=== PATIENT | male | born 1945 | race Caucasian/White ===

== ENCOUNTER 2021-06-14 12:58 | Emergency (ER) | payer OTHER, SELFPAY ==
--- NOTE | ~2021-06-14 | CT_ITS ---
EXAMINATION: CT brain wo con DATE: 06/14/2021 14:52 INDICATION: Transient disorientation. Vomiting. Patient fell 2 weeks ago and struck head. TECHNIQUE: Computed tomography (CT) of the head was performed without intravenous contrast. The mA wa s adjusted according to patient size. Iterative reconstruction technique was employed. Exam dose: 68 1.00 mGy-cm total exam DLP. COMPARISON: 10/19/2019 CT brain FINDINGS: Again noted is a posterior right parietal ventriculostomy catheter terminating in the left lateral ventricle. There is cerebellar and central and cortical cerebral atrophy. No intracranial mass lesion or hemorrhage, midline shift or mass effect effect or recent cerebrovascu lar accident is detected. No subdural or epidural hematoma. No skull fracture or bone destruction is detected. The mastoid air cells and paranasal sinuses are normally developed and aerated. IMPRESSION: Right posterior parietal ventriculostomy catheter in left lateral ventricle, not changed significantly since 10/19/2019 Central and cortical cerebral and cerebellar atrophy; no acute intracranial finding Reviewed, dictated and finalized at [facility]. Reviewed, dictated and finalized at [facility]. IMPRESSION: Right posterior parietal ventriculostomy catheter in left lateral ventricle, not changed significantly since 10/19/2019 Central and cortical cerebral and cerebellar atrophy; no acute intracranial fin ding
--- NOTE | ~2021-06-14 | XR_ITS ---
EXAMINATION: XR shoulder RT min 2V INDICATION: Right shoulder pain, fall two weeks ago TECHNIQUE: Four views of the right shoulder are submitted. COMPARISON: None FINDINGS: Normal alignment. No fracture. 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 Amorphous calcification projecting lateral to the humeral head is likely tendinous in natu re. Shunt catheter tubing projects over the right neck and right hemithorax. IMPRESSION: 1. No acute osseous abnormality. Reviewed, dictated and finalized at [facility].
[2021-06-14 12:58] VITALS: BP 87/45; PULSE 74; RESP 14; TEMP 36.3; O2SAT 97
[2021-06-14] MEDS: SODIUM CHLORIDE 0.9% IV 1,000 ML 999 ML (13:27)
[2021-06-14 13:43] LABS: Basophils Absolute Auto 0.07 K/mm3 (0.00-0.10); Basophils Percent Auto 0.8 % (0.0-1.0); Eosinophils Absolute Auto 0.23 K/mm3 (0.02-0.50); Eosinophils Percent Auto 2.5 % (1.0-6.0); Hematocrit 35.5 % (37.0-46.0); Hemoglobin 10.9 g/dL (12.4-15.3); Immature Granulocyte Absolute 0.03 K/mm3 (0.00-0.00); Immature Granulocyte Percent A 0.3 % (0.0-0.0); Lymphocytes Absolute Auto 1.56 K/mm3 (1.10-4.50); Lymphocytes Percent Auto 17.2 % (18.0-42.0); Mean Corpuscular HGB Conc 30.7 g/dL (32.0-36.0); Mean Corpuscular Hemoglobin 22.8 pg (27.0-31.0); Mean Corpuscular Volume 74.1 fL (78.0-102.0); Mean Platelet Volume 10.8 fl (8.7-11.0); Monocytes Absolute Auto 1.01 K/mm3 (0.10-0.90); Monocytes Percent Auto 11.1 % (2.0-11.0); Neutrophils Absolute Auto 6.2 K/mm3 (1.7-7.2); Neutrophils Percent Auto 68.1 % (50.0-70.0); Platelet Count Result 270 K/mm3 (150-420); Red Blood Count 4.79 M/mm3 (4.70-6.10); White Blood Count 9.1 K/mm3 (4.8-10.8)
--- NOTE | 2021-06-14 13:48 | ECG_ITS ---
Measurements Intervals [place] Rate: 78 P: 65 HI: 255 QRS: -55 QRSD: 167 T: 58 QT: 410 QTc: 468 Interpretive Statements SINUS RHYTHM WITH FIRST DEGREE AV BLOCK RIGHT BUNDLE BRANCH BLOCK LEFT ANTERIOR FASCICULAR BLOCK VOLTAGE CRITERIA FOR LVH BASELINE WANDER- II, III ABNORMAL ECG Electronically Signed On 06-14-2021 14:04:54 CDT by Greg Cheung D.O.
[2021-06-14 13:51] LABS: Alanine Aminotransferase 44 U/L (16-63); Albumin Level 3.6 g/dL (3.4-5.0); Alkaline Phosphatase 119 U/L (46-116); Anion Gap 14 mmol/L (8-16); Aspartate Amino Transferase 18 U/L (15-37); Bilirubin,Total 0.3 mg/dL (0.00-1.00); Blood Urea Nitrogen 23 mg/dL (7-18); Calcium 8.8 mg/dL (8.5-10.1); Carbon Dioxide 22 mmol/L (21-32); Chloride 100 mmol/L (98-108); Estimated Glomerular Filt Rate 42; Glucose 233 mg/dL (70-99); Osmolality Calculated 292 mOsm/kg (285-295); Potassium 4.2 mmol/L (3.5-5.1); Sodium 136 mmol/L (136-145); Total Protein 7.2 g/dL (6.4-8.2)
--- NOTE | 2021-06-14 13:55 | ED.GENADULT ---
HPI - General Adult General Chief complaint: Nausea/Vomiting/Diarrhea Stated complaint: Ambulance Time Seen by Provider: 06/14/21 13:55 History of Present Illness HPI narrative: 76-year-old male patient was brought to the ER by EMS after he had 1 episode of emesis this morning. Patient states that he was getting ready to have his breakfast when he suddenly felt nauseated and vomited. He states that he got a little foggy in his head but did not experience any headache, dizziness or passing out spell. He denies having experienced any pain in his neck jaw or chest. He denies having had any pain in his abdomen. No diarrhea is reported. The patient since then has felt better. He did not eat his breakfast the eventually. He does admit to being a diabetic but states that had not taken his insulin at that time. Patient states that he is feeling fine right now. He denies any COVID exposure. He is partially vaccinated and the 2nd dose is due coming Monday. Related Data Home Medications Medication Instructions Recorded Confirmed amlodipine [Norvasc] 5 mg PO DAILY 09/23/19 06/14/21 bupropion HCl 75 mg PO DAILY 09/23/19 06/14/21 cetirizine [Zyrtec] 10 mg PO DAILY 09/23/19 06/14/21 cyclobenzaprine 10 mg PO TID 09/23/19 06/14/21 fluticasone propionate 2 spray INTRANASAL BID 09/23/19 06/14/21 gabapentin 600 mg PO TID 09/23/19 06/14/21 hydrocodone-acetaminophen [Vicodin 1 tablet PO TID PRN 09/23/19 06/14/21 ES] insulin aspart U-100 [Novolog 17 unit SUBCUT DAILY 09/23/19 06/14/21 Flexpen U-100 Insulin] insulin glargine [Lantus Solostar 70 unit SUBCUT DAILY 09/23/19 06/14/21 U-100 Insulin] levothyroxine [Synthroid] 25 mcg PO DAILY 09/23/19 06/14/21 losartan 10 mg PO DAILY 09/23/19 06/14/21 metformin 1,000 mg PO DAILY 09/23/19 06/14/21 omeprazole 20 mg PO BID 09/23/19 06/14/21 tamsulosin 0.4 mg PO DAILY 09/23/19 06/14/21 venlafaxine 75 mg PO DAILY 09/23/19 06/14/21 Allergies Allergy/AdvReac Type Severity Reaction Status Date / Time oxycodone Allergy Intermediate heart Verified 10/04/17 16:25 racing Review of Systems Review of Systems: All systems reviewed & are unremarkable except as noted in HPI and below Constitutional: Constitutional: Reports no additional constitutional complaints Eyes: Eyes: Reports no additional eye complaints ENT: Reports system reviewed and no additional complaints, except as documented Cardiovascular: Cardiovascular: Reports no additional cardiovascular complaints Respiratory: Respiratory: Reports no additional respiratory complaints Gastrointestinal: Gastrointestinal: Reports no additional gastrointestinal complaints Genitourinary: Genitourinary: Reports no additional male genitourinary complaints Musculoskeletal: Musculoskeletal: Reports no additional musculoskeletal complaints Integumentary/Breasts: Skin/Breast: Reports system reviewed and no additional complaints, except as docu Neurologic: Reports system reviewed and no additional complaints, except as documented Psychiatric: Psychiatric: Reports no additional psychiatric complaints Endocrine: Endocrine: Reports no additional endocrine complaints Hematologic/Lymphatic: Hematologic/Lymphatic: Reports no additional hematologic/lymphatic complaints Allergic/Immunologic: Allergic/Immunologic: Reports no additional allergic/immunologic complaints PMFSH Past Medical History Medical History CVA (cerebrovascular accident) Depression Diabetes mellitus Hypertension Hypothyroidism Ventricular shunt in place Surgical History Surgical History H/O shoulder surgery History of appendectomy Hx of cholecystectomy Family History Family History Father Malignant neoplasm of prostate father in a railway crossing accident in his early 40s Mother No problems noted.
[2021-06-14 14:07] LABS: Magnesium 1.8 mg/dL (1.8-2.4); Troponin I 5.8 ng/L (0.00-60.4)
[2021-06-14 15:00] VITALS: BP 145/71; PULSE 83
[2021-06-14 15:02] VITALS: BP 113/99; PULSE 76
[2021-06-14 15:04] VITALS: BP 132/64; PULSE 85
[2021-06-14 15:45] VITALS: BP 103/75; PULSE 77; RESP 16; O2SAT 99
[2021-06-14 16:06] LABS: Add Urine Microscopic? YES; Appearance Urine Cloudy (Clear); Bilirubin Urine Negative (Negative); Blood Urine 1+ (Negative); Color Urine Light Yellow (Yellow); Glucose Urine UA 2+ (Negative); Ketones Urine Negative (Negative); Leukocyte Esterase Ur 3+ LEU/UL (Negative); Nitrate Urine Negative (Negative); Protein Urine Negative (Negative); Specific Grav Ur <= 1.005 (1.010-1.020); Urobilinogen Urine 0.2 mg/dL (0.2-1.0)
[2021-06-14 16:11] LABS: Bacteria Urine 3+ /hpf; Squamous Epithelial Cell Urine Few /hpf (Few); WBC Urine >75 /hpf (0-3)
--- NOTE | 2021-06-14 16:16 | PC.NURSE ---
PATIENTS SPOUSE, JOSE, CONTACTED AFTER PATIENTS DISCHARGE TO INFORM HER OF PATIENTS URINALYSIS RESULTS. SPOUSE INFORMED THAT ANTIBIOTIC PRESCRIPTION HAS BEEN SENT TO THE PATIENTS PREFERRED PHARMACY.
== END 2021-06-14 16:06 | disposition home or self-care (01) ==
PROVIDERS: Emergency Provider Emergency Medicine
DX: E86.0 Dehydration (principal); R11.10 Vomiting, unspecified; R82.90 Unspecified abnormal findings in urine
CPT/HCPCS: 36415; 70450; 73030; 80053; 81001; 83735; 84484; 85025; 87077; 87086; 87088; 87186; 93005; 96360; 99283; 99284; J7030

== ENCOUNTER 2021-07-10 18:33 | Emergency (ER) | payer MEDICARE, SELFPAY ==
--- NOTE | ~2021-07-10 | CT_ITS ---
EXAMINATION: CT brain wo con DATE: 07/10/2021 19:12 INDICATION: Syncope TECHNIQUE: Computed tomography (CT) of the head was performed without intravenous contrast. The mA wa s adjusted according to patient size. Iterative reconstruction technique was employed. Exam dose: 60 5.33 mGy-cm total exam DLP. COMPARISON: 06/14/2021 CT brain 10/19/2019 CT brain FINDINGS: Again noted is a right posterior parietal ventricular shunt extending across the midline in to the anterolateral aspect of the body of the left lateral ventricle. There is central and cortical cerebral and cerebellar atrophy. Small chronic right thalamic lacunar infarct is suggested. No intracranial mass lesion or hemorrhage or cerebrovascular accident, midline shift or mass effect effect is detected otherwise. The orbits ar e unremarkable. No subdural or epidural hematoma. No fracture or bone destruction of the cranial vault is detected. The mastoid air cells and included paranasal sinuses are normally developed and aerated. IMPRESSION: Ventricular shunt catheter unchanged in position since 06/14/2021 Cerebral and cerebellar volume loss; no acute intracranial finding Reviewed, dictated and finalized at [facility]. Reviewed, dictated and finalized at [facility].
[2021-07-10 18:33] VITALS: BP 121/63; PULSE 83; RESP 12; TEMP 36.6; O2SAT 99
[2021-07-10 18:35] VITALS: PULSE 80
--- NOTE | 2021-07-10 18:40 | ECG_ITS ---
Measurements Intervals [place] Rate: 82 P: 38 CO: 248 QRS: -57 QRSD: 157 T: 29 QT: 389 QTc: 455 Interpretive Statements SINUS RHYTHM WITH FIRST DEGREE AV BLOCK RIGHT BUNDLE BRANCH BLOCK LEFT ANTERIOR FASCICULAR BLOCK BASELINE ARTIFACT- I, II, III, AVR, AVL, AVF ABNORMAL ECG Electronically Signed On 07-12-2021 6:04:58 CDT by Greg Cheung D.O.
[2021-07-10 19:03] LABS: Basophils Absolute Auto 0.03 K/mm3 (0.00-0.10); Basophils Percent Auto 0.3 % (0.0-1.0); Eosinophils Absolute Auto 0.08 K/mm3 (0.02-0.50); Eosinophils Percent Auto 0.7 % (1.0-6.0); Hematocrit 34.5 % (37.0-46.0); Hemoglobin 10.9 g/dL (12.4-15.3); Immature Granulocyte Absolute 0.07 K/mm3 (0.00-0.00); Immature Granulocyte Percent A 0.6 % (0.0-0.0); Lymphocytes Absolute Auto 0.67 K/mm3 (1.10-4.50); Lymphocytes Percent Auto 5.6 % (18.0-42.0); Mean Corpuscular HGB Conc 31.6 g/dL (32.0-36.0); Mean Corpuscular Hemoglobin 23.4 pg (27.0-31.0); Mean Platelet Volume 10.4 fl (8.7-11.0); Monocytes Absolute Auto 1.16 K/mm3 (0.10-0.90); Monocytes Percent Auto 9.8 % (2.0-11.0); Neutrophils Absolute Auto 9.9 K/mm3 (1.7-7.2); Platelet Count Result 240 K/mm3 (150-420); Red Blood Count 4.66 M/mm3 (4.70-6.10); Red Cell Distribution Width 19.2 % (11.6-14.4); White Blood Count 11.9 K/mm3 (4.8-10.8)
[2021-07-10 19:17] LABS: Partial Thromboplastin Time 25.6 SEC (23.90-30.70); Prothrombin Time 10.9 Seconds (9.50-12.10)
[2021-07-10 19:23] LABS: Lactic Acid Reflex 2.8 mmol/L (0.4-2.0)
[2021-07-10 19:25] LABS: Alanine Aminotransferase 33 U/L (16-63); Albumin Level 3.6 g/dL (3.4-5.0); Alkaline Phosphatase 116 U/L (46-116); Anion Gap 10 mmol/L (8-16); Aspartate Amino Transferase 15 U/L (15-37); Bilirubin,Total 0.3 mg/dL (0.00-1.00); Blood Urea Nitrogen 14 mg/dL (7-18); Calcium 8.9 mg/dL (8.5-10.1); Carbon Dioxide 25 mmol/L (21-32); Chloride 99 mmol/L (98-108); Estimated Glomerular Filt Rate 52; Glucose 137 mg/dL (70-99); Magnesium 1.5 mg/dL (1.8-2.4); NT Pro B Type Natriuretic Pept 122 pg/mL (0-450); Osmolality Calculated 280 mOsm/kg (285-295); Potassium 4.3 mmol/L (3.5-5.1); Sodium 134 mmol/L (136-145); Total Protein 7.4 g/dL (6.4-8.2); Troponin I 7.4 ng/L (0.00-60.4)
--- NOTE | 2021-07-10 19:39 | ED.SYNCOPE ---
HPI - Syncope General Chief Complaint: Syncope Stated Complaint: Ambulance Source: patient and EMS Mode of arrival: EMS Limitations: no limitations History of Present Illness HPI narrative: This is a 76-year-old gentleman that presents via EMS after his called stating that he had a near syncopal episode patient states that he did not pass out he was eased to the ground and did not have a fall with any injuries. The patient does have a history of diabetes and he thinks that he may have taking extra insulin. Patient also has a history of CVA and has a intraventricular shunt, currently no nausea vomiting no headache no blurry vision patient appears to be back to his baseline with no abdominal pain no dysuria no flank pain no hematuria no chest pain or shortness of breath. MD complaint: almost passed out Prodromal symptoms: none Witnessed: Yes - by Bystander Context: at rest Related Data Home Medications Medication Instructions Recorded Confirmed amlodipine [Norvasc] 5 mg PO DAILY 09/23/19 06/14/21 bupropion HCl 75 mg PO DAILY 09/23/19 06/14/21 cetirizine [Zyrtec] 10 mg PO DAILY 09/23/19 06/14/21 cyclobenzaprine 10 mg PO TID 09/23/19 06/14/21 fluticasone propionate 2 spray INTRANASAL BID 09/23/19 06/14/21 gabapentin 600 mg PO TID 09/23/19 06/14/21 hydrocodone-acetaminophen [Vicodin 1 tablet PO TID PRN 09/23/19 06/14/21 ES] insulin aspart U-100 [Novolog 17 unit SUBCUT DAILY 09/23/19 06/14/21 Flexpen U-100 Insulin] insulin glargine [Lantus Solostar 70 unit SUBCUT DAILY 09/23/19 06/14/21 U-100 Insulin] levothyroxine [Synthroid] 25 mcg PO DAILY 09/23/19 06/14/21 losartan 10 mg PO DAILY 09/23/19 06/14/21 metformin 1,000 mg PO DAILY 09/23/19 06/14/21 omeprazole 20 mg PO BID 09/23/19 06/14/21 tamsulosin 0.4 mg PO DAILY 09/23/19 06/14/21 venlafaxine 75 mg PO DAILY 11/11/19 08/02/21 Allergies Allergy/AdvReac Type Severity Reaction Status Date / Time oxycodone Allergy Intermediate heart Verified 10/04/17 16:25 racing Review of Systems Review of Systems: All systems reviewed & are unremarkable except as noted in HPI and below PMFSH Past Medical History Medical History CVA (cerebrovascular accident) Depression Diabetes mellitus Hypertension Hypothyroidism Ventricular shunt in place Surgical History Surgical History H/O shoulder surgery History of appendectomy Hx of cholecystectomy Family History Family History Father Malignant neoplasm of prostate father in a railway crossing accident in his early 40s Mother No problems noted. Social History Social History Gender identity (if verbalized by the patient): Male Exam Const: General: no acute distress and alert Orientation/consciousness: patient oriented x3 HENMT: Head: normal to inspection Eyes: Conjunctivae: conjunctivae normal Pupils: Equal, round and reactive pupils present EOM: EOMs intact bilaterally Neck: Neck: normal visual inspection, no lymphadenopathy and no meningeal signs Chest: Chest palpation & inspection: normal inspection of the chest Resp: Effort & Inspection: normal respiratory effort Auscultation: clear to auscultation bilaterally Cardio: Rate: regular rate GI: Auscultation: normal bowel sounds Urinary Catheter: Urinary Catheter: patent and draining Back/Spine/Pelvis: Back: no CVA tenderness Neuro: General: patient oriented x3 Extrem: General: normal to inspection and no pedal edema Psych: Appearance: grossly normal and well kempt Mental Status: mental status grossly normal Affect: normal affect Attitude: cooperative Course Course Emergency Course: Reassessment of patient, doing well currently no headache no dizziness no nausea vomiting reviewed CT scan findings wi
[2021-07-10 19:45] VITALS: BP 113/58; PULSE 63; RESP 14; TEMP 36.6; O2SAT 99
--- NOTE | 2021-07-10 19:47 | PC.NURSE ---
1L LR THAT WAS INITIATED BY [facility] HAS FINISHED INFUSING AT THIS TIME.
== END 2021-07-10 19:55 | disposition home or self-care (01) ==
PROVIDERS: Emergency Provider Emergency Medicine
DX: E86.0 Dehydration (principal); R55 Syncope and collapse; E11.9 Type 2 diabetes mellitus without complications; I10 Essential (primary) hypertension; E03.9 Hypothyroidism, unspecified
CPT/HCPCS: 36415; 70450; 80053; 83605; 83735; 83880; 84484; 85025; 85610; 85730; 93005; 99283; 99284

== ENCOUNTER 2022-01-11 15:18 | Emergency (ER) | payer OTHER, SELFPAY ==
[2022-01-11 15:20] VITALS: BP 172/85; PULSE 85; RESP 20; TEMP 36.6; O2SAT 98
--- NOTE | 2022-01-11 15:36 | ED.GENADULT ---
HPI - General Adult General Chief complaint: Unspecified Stated complaint: catheter came apart Time Seen by Provider: 01/11/22 15:20 Source: patient and RN notes reviewed Mode of arrival: ambulatory Limitations: no limitations History of Present Illness complaint: pt requested penile catheter re-set Onset (ago): hour(s) (4) Location: genitals Radiation: non-radiation Severity: mild Severity scale (1-10): 1 Quality: other (pain-free) Pain Consistency: other (none.) Relieving factors: none Exacerbating factors: none Treatments prior to arrival: none Related Data Home Medications Medication Instructions Recorded Confirmed bupropion HCl 75 mg PO DAILY 09/23/19 01/24/22 cetirizine [Zyrtec] 10 mg PO DAILY 09/23/19 01/24/22 cyclobenzaprine 10 mg PO TID 09/23/19 01/24/22 fluticasone propionate 2 spray INTRANASAL BID 09/23/19 01/24/22 gabapentin 600 mg PO TID 09/23/19 01/24/22 levothyroxine [Synthroid] 25 mcg PO DAILY 09/23/19 01/24/22 omeprazole 20 mg PO BID 09/23/19 01/24/22 tamsulosin 0.4 mg PO DAILY 09/23/19 01/24/22 venlafaxine 75 mg PO DAILY 09/23/19 01/24/22 aspirin 81 mg tablet,delayed 81 mg PO DAILY 07/22/21 01/24/22 release insulin aspart U-100 100 unit/mL See Rx Instructions SUBCUT DAILY 07/22/21 01/24/22 (3 mL) subcutaneous pen ml insulin glargine 100 unit/mL (3 78 unit SUBCUT DAILY ml 07/22/21 01/24/22 mL) subcutaneous pen losartan 25 mg tablet 25 mg PO DAILY tablet 07/22/21 01/24/22 mecobalamin (vitamin B12) 5,000 5,000 mcg PO DAILY tablet 07/22/21 01/24/22 mcg disintegrating tablet melatonin 5 mg capsule 5 mg PO .nightly cap 07/22/21 01/24/22 metformin 1,000 mg tablet 1,000 mg PO BID tablet 07/22/21 01/24/22 alogliptin 25 mg DAILY 01/24/22 01/24/22 Allergies Allergy/AdvReac Type Severity Reaction Status Date / Time oxycodone Allergy Intermediate heart Verified 01/24/22 11:36 racing Review of Systems Review of Systems: All systems reviewed & are unremarkable except as noted in HPI and below PMFSH Past Medical History Medical History Anemia Chronic pain CKD (chronic kidney disease) stage 3, GFR 30-59 ml/min CVA (cerebrovascular accident) Depression Diabetes mellitus Hypertension Hypomagnesemia Hypothyroidism Pain in right hip Pain in right shoulder Urinary catheter complication Ventricular shunt in place Surgical History Surgical History H/O shoulder surgery History of appendectomy History of hip surgery BOTH Hx of cholecystectomy Family History Family History Father Malignant neoplasm of prostate father in a railway crossing accident in his early 40s Mother No problems noted. Social History Social History Smoking packs per day: 1 Smoking cigarettes per day: 20.0 Years smoked: 15 Smoking pack-years: 15.00 Smoking status: Former smoker Alcohol intake: never Substance use: never Substance use type: does not use Additional living arrangements comments: Gender identity (if verbalized by the patient): Male Exam Const: General: cooperative, comfortable, well developed, alert, awake and Physically active Nutritional Appearance: obese Orientation/consciousness: patient oriented x3 Limitations: no limitations HENMT: Head: normocephalic and atraumatic Ears: hearing grossly normal bilaterally, external ears normal and TM's normal bilaterally General nose exam: Normal external nose present and Normal nares present Face and sinus: normal facial exam Mouth: Yes Normal oral and palatal mucosa present, Yes lip normal, Yes tongue normal, Yes oropharynx normal and Yes moist mucous membranes Teeth and gingiva: dentition normal and gingiva normal Throat: posterior oropharynx normal Eyes: General: appearance
--- NOTE | 2022-01-11 16:08 | PC.NURSE ---
1520 MASTERS LEAKING IT HAD COME APART FROM THE TUBING NEW MASTERS BAG AND TUBING APPLIED AND TAPED WITH LEG STATLOCK APPLIED TO RIGHT LEG MASTERS NOW DRAINING INTO BAG WITHOUT DIFFICULTY
[2022-01-11 16:11] VITALS: BP 170/82; PULSE 84; RESP 20; TEMP 36.7; O2SAT 98
== END 2022-01-11 16:13 | disposition home or self-care (01) ==
PROVIDERS: Emergency Provider Emergency Medicine
DX: T83.9XXD Unspecified complication of genitourinary prosthetic device, implant and graft, subsequent encounter (principal); I12.9 Hypertensive chronic kidney disease with stage 1 through stage 4 chronic kidney disease, or unspecified chronic kidney disease; N18.30 Chronic kidney disease, stage 3 unspecified; E11.9 Type 2 diabetes mellitus without complications; E03.9 Hypothyroidism, unspecified; Z87.891 Personal history of nicotine dependence
CPT/HCPCS: 99282

== ENCOUNTER 2022-01-24 10:59 | Emergency (ER) | payer OTHER, SELFPAY ==
--- NOTE | 2022-01-24 11:21 | ED.MALEGU ---
HPI - Male Genitourinary General Chief complaint: Urogenital-Male Stated complaint: pulled catheter loose Source: patient and RN notes reviewed Mode of arrival: ambulatory Limitations: no limitations History of Present Illness HPI Narrative: patient had problems with his catheter that it just seemed to hurt at the base of his penis. He did not have anchored to his leg. Daughter speculates that he may have accidentally stepped on it or pulled on it dislodging it. He comes in to have his catheter exchanged. Onset (ago): day(s) (1) Duration: constant Location: penis Severity: mild Relieving factors: none Exacerbating factors: movement Context: indwelling catheter Associated symptoms: Reports denies other symptoms Related Data Home Medications Medication Instructions Recorded Confirmed bupropion HCl 75 mg PO DAILY 09/23/19 07/22/21 cetirizine [Zyrtec] 10 mg PO DAILY 09/23/19 07/22/21 cyclobenzaprine 10 mg PO TID 09/23/19 07/22/21 fluticasone propionate 2 spray INTRANASAL BID 09/23/19 07/22/21 gabapentin 600 mg PO TID 09/23/19 07/22/21 levothyroxine [Synthroid] 25 mcg PO DAILY 09/23/19 07/22/21 omeprazole 20 mg PO BID 09/23/19 07/22/21 tamsulosin 0.4 mg PO DAILY 09/23/19 07/22/21 venlafaxine 75 mg PO DAILY 09/23/19 07/22/21 aspirin 81 mg tablet,delayed 81 mg PO DAILY 07/22/21 07/22/21 release insulin aspart U-100 100 unit/mL See Rx Instructions SUBCUT DAILY 07/22/21 07/22/21 (3 mL) subcutaneous pen ml insulin glargine 100 unit/mL (3 78 unit SUBCUT DAILY ml 07/22/21 07/22/21 mL) subcutaneous pen losartan 25 mg tablet 25 mg PO DAILY tablet 07/22/21 07/22/21 mecobalamin (vitamin B12) 5,000 5,000 mcg PO DAILY tablet 07/22/21 07/22/21 mcg disintegrating tablet melatonin 5 mg capsule 5 mg PO .nightly cap 07/22/21 07/22/21 metformin 1,000 mg tablet 1,000 mg PO BID tablet 07/22/21 07/22/21 alogliptin 25 mg DAILY 01/24/22 01/24/22 Allergies Allergy/AdvReac Type Severity Reaction Status Date / Time oxycodone Allergy Intermediate heart Verified 01/24/22 11:36 racing Review of Systems Review of Systems: All systems reviewed & are unremarkable except as noted in HPI and below PMFSH Past Medical History Medical History Anemia Chronic pain CKD (chronic kidney disease) stage 3, GFR 30-59 ml/min CVA (cerebrovascular accident) Depression Diabetes mellitus Hypertension Hypomagnesemia Hypothyroidism Pain in right hip Pain in right shoulder Ventricular shunt in place Surgical History Surgical History H/O shoulder surgery History of appendectomy History of hip surgery BOTH Hx of cholecystectomy Family History Family History Father Malignant neoplasm of prostate father in a railway crossing accident in his early 40s Mother No problems noted. Social History Social History Smoking packs per day: 1 Smoking cigarettes per day: 20.0 Years smoked: 15 Smoking pack-years: 15.00 Smoking status: Former smoker Alcohol intake: never Substance use: never Substance use type: does not use Additional living arrangements comments: Gender identity (if verbalized by the patient): Male Exam Const: General: healthy appearing, no acute distress and alert Nutritional Appearance: obese morbidly obese HENMT: Head: normal to inspection General nose exam: Normal external nose present Eyes: Conjunctivae: conjunctivae normal Pupils: Equal, round and reactive pupils present EOM: EOMs intact bilaterally Neck: Neck: normal visual inspection Resp: Effort & Inspection: normal respiratory effort Auscultation: clear to auscultation bilaterally Cardio: Rate: regular rate Rhythm: regular rhythm GI: GI Palp: Yes Soft to palpation and No Tenderness to palpation pr
[2022-01-24 11:30] VITALS: BP 168/69; PULSE 90; RESP 16; TEMP 36.2; O2SAT 100
[2022-01-24 11:46] VITALS: BP 160/88; PULSE 90; RESP 16; TEMP 36.7; O2SAT 100
== END 2022-01-24 11:49 | disposition home or self-care (01) ==
PROVIDERS: Emergency Provider Emergency Medicine
DX: Z46.6 Encounter for fitting and adjustment of urinary device (principal); I12.9 Hypertensive chronic kidney disease with stage 1 through stage 4 chronic kidney disease, or unspecified chronic kidney disease; N18.30 Chronic kidney disease, stage 3 unspecified; E11.9 Type 2 diabetes mellitus without complications; E03.9 Hypothyroidism, unspecified; Z87.891 Personal history of nicotine dependence
CPT/HCPCS: 99283

== ENCOUNTER 2022-02-22 12:31 | Inpatient (IN) | payer MEDICARE, SELFPAY ==
--- NOTE | ~2022-02-22 | CT_ITS ---
EXAMINATION: CT brain wo con DATE: 02/22/2022 14:22 INDICATION: Dizziness. Syncope. TECHNIQUE: Computed tomography (CT) of the head was performed without intravenous contrast. The mA wa s adjusted according to patient size. Iterative reconstruction technique was employed. The dose-lengt h product was 605.33 mGy-cm. COMPARISON: Head CT 07/10/2021 FINDINGS: There are scattered areas of low attenuation in the cerebral white matter. The ventricles a re unchanged in size. There is a right parietal the tracheostomy catheter with tip in body of left la teral ventricle. There is chronic encephalomalacia in right parietal lobe. There is no intracranial h emorrhage, acute infarction, or abnormal intracranial mass lesion. There are likely changes of right ocular lens replacement surgery. There is mild mucosal thickening in the ethmoid sinuses. The mastoid air cells are normal. IMPRESSION: 1. Chronic encephalomalacia in right parietal lobe. 2. Stable mild nonspecific cerebral white matter disease, which likely represents chronic small vesse l ischemic disease. 3. Stable size of the ventricles with shunt in unchanged position. Reviewed, dictated and finalized at location A. IMPRESSION: 1. Chronic encephalomalacia in right parietal lobe. 2. Stable mild nonspecific cerebral white matter disease, which likely represen ts chronic small vessel ischemic disease. 3. Stable size of the ventricles with shunt in unchanged position.
--- NOTE | ~2022-02-22 | XR_ITS ---
EXAMINATION: XR chest 1V portable INDICATION: Transient alteration of awareness TECHNIQUE: Portable AP chest at 1408 hours COMPARISON: 09/23/2019 FINDINGS: The lungs are free of acute opacities. There is no pleural effusion or pneumothorax. The ca rdiomediastinal silhouette is normal. There are changes of left total shoulder arthroplasty. Catheter tubing courses over the right hemithorax. IMPRESSION: 1. No acute cardiopulmonary abnormality. Reviewed, dictated and finalized at location A.
--- NOTE | 2022-02-22 12:44 | ED.SYNCOPE ---
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 He was noted to blood sugar of 146. He was walking when felt dizzy and about to slump when he walked back to the bed and slept -- Hypotension with a blood pressure of 79/39. The patient takes losartan and tamsulosin. The patient received 1 L of normal saline with improvement of his blood pressure to 91/42. -- He had nausea and 1 episode of vomiting EN route to the hospital. No abdominal pain. No diarrhea. -- Headache for the past few days. No nausea/vomiting. No visual changes. No focal neuro deficits. He denies chest pain or shortness of breath. MD complaint: felt faint Onset (ago): unknown Prodromal symptoms: none Context: at rest Injuries sustained associated with event: none Current symptoms: none Treatments prior to arrival: none Related Data Home Medications Medication Instructions Recorded Confirmed bupropion HCl 75 mg PO DAILY 09/23/19 02/22/22 cetirizine [Zyrtec] 10 mg PO DAILY 09/23/19 02/22/22 cyclobenzaprine 10 mg PO TID 09/23/19 02/22/22 fluticasone propionate 2 spray INTRANASAL BID 09/23/19 02/22/22 gabapentin 600 mg PO TID 09/23/19 02/22/22 levothyroxine [Synthroid] 25 mcg PO DAILY 09/23/19 02/22/22 omeprazole 20 mg PO BID 09/23/19 02/22/22 tamsulosin 0.4 mg PO DAILY 09/23/19 02/22/22 venlafaxine 75 mg PO DAILY 09/23/19 02/22/22 aspirin 81 mg tablet,delayed 81 mg PO DAILY 07/22/21 02/22/22 release insulin aspart U-100 100 unit/mL See Rx Instructions SUBCUT DAILY 07/22/21 02/22/22 (3 mL) subcutaneous pen ml insulin glargine 100 unit/mL (3 78 unit SUBCUT DAILY ml 07/22/21 02/22/22 mL) subcutaneous pen losartan 25 mg tablet 25 mg PO DAILY tablet 07/22/21 02/22/22 mecobalamin (vitamin B12) 5,000 5,000 mcg PO DAILY tablet 07/22/21 02/22/22 mcg disintegrating tablet melatonin 5 mg capsule 5 mg PO .nightly cap 07/22/21 02/22/22 metformin 1,000 mg tablet 1,000 mg PO BID tablet 07/22/21 02/22/22 alogliptin 25 mg PO DAILY 01/24/22 02/22/22 Allergies Allergy/AdvReac Type Severity Reaction Status Date / Time oxycodone Allergy Intermediate heart Verified 02/22/22 12:57 racing Review of Systems Review of Systems: All systems reviewed & are unremarkable except as noted in HPI and below Constitutional: Constitutional: Reports as per HPI and Reports no additional constitutional complaints Eyes: Eyes: Reports as per HPI and Reports no additional eye complaints ENT: Reports system reviewed and no additional complaints, except as documented and Reports as per HPI Cardiovascular: Cardiovascular: Reports as per HPI and Reports no additional cardiovascular complaints Respiratory: Respiratory: Reports as per HPI and Reports no additional respiratory complaints Gastrointestinal: Gastrointestinal: Reports as per HPI, Reports no additional gastrointestinal complaints and Reports vomiting Genitourinary: Genitourinary: Reports no additional male genitourinary complaints Comments: Chronic Smith's catheter Musculoskeletal: Musculoskeletal: Reports no additional musculoskeletal complaints and Reports as per HPI Integumentary/Breasts: Skin/Breast: Reports system reviewed and no additional complaints, except as docu and Reports as per HPI Neurologic: Reports system reviewed and no additional complaints, except as documented, Reports as per HPI and Reports dizziness Psychiatric: Psychiatric: Reports no additional psychiatric complaints and Reports as per HPI Endocrine: Endocrine: Reports no additional endocrine complaints and Reports as per HPI Hematologic/Lymphatic: Hematologic/Lymphatic: Reports no additional hematologic/lymphatic complaints and Reports as per HPI Allergic/I
[2022-02-22 12:52] VITALS: BP 79/39; PULSE 72; RESP 17; TEMP 35.6; O2SAT 99
--- NOTE | 2022-02-22 12:54 | ECG_ITS ---
Measurements Intervals [place] Rate: 70 P: 51 MT: 296 QRS: -62 QRSD: 169 T: 57 QT: 412 QTc: 447 Interpretive Statements SINUS RHYTHM WITH FIRST DEGREE AV BLOCK RIGHT BUNDLE BRANCH BLOCK [120+ ms QRS DURATION, UPRIGHT V1, 40+ ms S IN I/aVL/V4/V5/V6] LEFT ANTERIOR FASCICULAR BLOCK [QRS AXIS <= -45, QR IN I, RS IN II] ABNORMAL ECG COMPARED TO ECG 07/10/2021 18:49:53 NO SIGNIFICANT CHANGES Electronically Signed On 02-22-2022 17:53:36 CDT by Candido Feng M.D.
[2022-02-22] MEDS: LACTATED RINGERS 1,000 ML 999 ML IV CONT (13:06)
[2022-02-22 13:33] LABS: Basophils Absolute Auto 0.05 K/mm3 (0.00-0.10); Basophils Percent Auto 0.5 % (0.0-1.0); Eosinophils Absolute Auto 0.13 K/mm3 (0.02-0.50); Eosinophils Percent Auto 1.4 % (1.0-6.0); Hematocrit 36.5 % (37.0-46.0); Hemoglobin 11.2 g/dL (12.4-15.3); Immature Granulocyte Absolute 0.05 K/mm3 (0.00-0.00); Immature Granulocyte Percent A 0.5 % (0.0-0.0); Lymphocytes Absolute Auto 0.88 K/mm3 (1.10-4.50); Lymphocytes Percent Auto 9.3 % (18.0-42.0); Mean Corpuscular HGB Conc 30.7 g/dL (32.0-36.0); Mean Corpuscular Hemoglobin 25.1 pg (27.0-31.0); Mean Corpuscular Volume 81.7 fL (78.0-102.0); Mean Platelet Volume 10.8 fl (8.7-11.0); Monocytes Absolute Auto 0.85 K/mm3 (0.10-0.90); Neutrophils Absolute Auto 7.5 K/mm3 (1.7-7.2); Neutrophils Percent Auto 79.3 % (50.0-70.0); Platelet Count Result 232 K/mm3 (150-420); Red Blood Count 4.47 M/mm3 (4.70-6.10); Red Cell Distribution Width 16.7 % (11.6-14.4); White Blood Count 9.5 K/mm3 (4.8-10.8)
[2022-02-22 13:35] LABS: Add Urine Microscopic? YES; Appearance Urine Clear (Clear); Bilirubin Urine Negative (Negative); Blood Urine Negative (Negative); Color Urine Light Yellow (Yellow); Glucose Urine UA Negative (Negative); Ketones Urine Negative (Negative); Leukocyte Esterase Ur 1+ (Negative); Nitrate Urine Positive (Negative); Protein Urine Negative (Negative); Urobilinogen Urine 0.2 mg/dL (0.2-1.0); pH Urine 6.5 (5.0-8.0)
[2022-02-22 13:38] LABS: Bacteria Urine 1+ /hpf; RBC Urine None seen /hpf (0-2); Squamous Epithelial Cell Urine Rare /hpf (Few); WBC Urine 0-3 /hpf (0-3)
[2022-02-22 13:45] LABS: Partial Thromboplastin Time 23.5 SEC (23.90-30.70); Prothrombin Time 10.9 Seconds (9.50-12.10)
[2022-02-22 13:50] LABS: Lactic Acid Reflex 2.5 mmol/L (0.4-2.0)
[2022-02-22 13:56] LABS: Alanine Aminotransferase 24 U/L (16-63); Albumin Level 3.4 g/dL (3.4-5.0); Alkaline Phosphatase 100 U/L (46-116); Anion Gap 9 mmol/L (8-16); Aspartate Amino Transferase 14 U/L (15-37); Bilirubin,Total 0.3 mg/dL (0.00-1.00); Blood Urea Nitrogen 21 mg/dL (7-18); Calcium 8.7 mg/dL (8.5-10.1); Carbon Dioxide 26 mmol/L (21-32); Chloride 100 mmol/L (98-108); Estimated Glomerular Filt Rate 47; Glucose 107 mg/dL (70-99); Lipase 51 U/L (73-393); Magnesium 1.9 mg/dL (1.8-2.4); NT Pro B Type Natriuretic Pept 57 pg/mL (0-450); Osmolality Calculated 283 mOsm/kg (285-295); Potassium 4.6 mmol/L (3.5-5.1); Sodium 135 mmol/L (136-145); Thyroid Stimulating Hormone 5.76 uIU/mL (0.36-3.74); Total Protein 7.1 g/dL (6.4-8.2); Troponin I 9.6 ng/L (0.00-60.4)
[2022-02-22 14:06] LABS: SARS-CoV-2 RNA PCR Negative (Negative)
[2022-02-22] MEDS: SODIUM CHLORIDE 0.9% IV 500 ML 999 ML IV CONT (14:51)
[2022-02-22 15:59] VITALS: BP 148/80; PULSE 76; RESP 16; TEMP 36.9; O2SAT 100
[2022-02-22 16:00] VITALS: BP 142/67; PULSE 76; PULSE 89; RESP 18; TEMP 36.4; O2SAT 100
[2022-02-22 16:30] VITALS: BMI 31.3
[2022-02-22 16:30] LABS: Reflex Lactic Acid Yes or No Add Lactic
[2022-02-22] MEDS: SODIUM CHLORIDE 0.9% IV 1,000 ML 150 ML IV CONT (16:56)
[2022-02-22 17:02] LABS: Glucose Point of Care 112 mg/dl (65-105)
[2022-02-22 17:03] LABS: Lactic Acid 2.4 mmol/L (0.4-2.0)
[2022-02-22] MEDS: FLUTICASONE PROPIONATE 0.05% NA SPR 16 GM BTL (*BKC) 2 SPRAY NASAL (17:10)
[2022-02-22] MEDS: GABAPENTIN 300 MG CAPSULE 600 MG PO (17:10)
[2022-02-22] MEDS: PHARMACIST COMMUNICATION ORDER 1 EACH XX (17:16)
[2022-02-22 19:55] VITALS: PULSE 99
[2022-02-22 20:00] VITALS: BP 151/67; PULSE 99; RESP 18; TEMP 36.7; O2SAT 100
[2022-02-22 20:07] VITALS: BP 128/52; BP 144/73
[2022-02-22] MEDS: DOCUSATE SODIUM 100 MG CAPSULE PO (20:57)
[2022-02-22] MEDS: MELATONIN 5 MG TABLET PO (20:57)
[2022-02-23] VITALS (12 sets, daily range): BP systolic 110–147; BP diastolic 48–85; PULSE 84–100; RESP 17–88; TEMP 36.4–36.8; O2SAT 94–97
[2022-02-23 05:27] LABS: Hematocrit 33.9 % (37.0-46.0); Hemoglobin 10.5 g/dL (12.4-15.3); Mean Corpuscular Volume 80.7 fL (78.0-102.0); Platelet Count Result 223 K/mm3 (150-420); Red Cell Distribution Width 16.8 % (11.6-14.4); White Blood Count 15.7 K/mm3 (4.8-10.8)
[2022-02-23 05:49] LABS: Alanine Aminotransferase 24 U/L (16-63); Alkaline Phosphatase 90 U/L (46-116); Anion Gap 8 mmol/L (8-16); Aspartate Amino Transferase 13 U/L (15-37); Bilirubin,Total 0.4 mg/dL (0.00-1.00); Blood Urea Nitrogen 18 mg/dL (7-18); Calcium 8.5 mg/dL (8.5-10.1); Carbon Dioxide 25 mmol/L (21-32); Chloride 101 mmol/L (98-108); Estimated CRCL calculation 52 ml/min; Estimated Glomerular Filt Rate > 60; Glucose 63 mg/dL (70-99); Magnesium 1.9 mg/dL (1.8-2.4); Osmolality Calculated 277 mOsm/kg (285-295); Potassium 3.7 mmol/L (3.5-5.1); Sodium 134 mmol/L (136-145); Total Protein 6.5 g/dL (6.4-8.2)
[2022-02-23 05:52] LABS: Lactic Acid Reflex 0.7 mmol/L (0.4-2.0)
[2022-02-23] MEDS: LEVOTHYROXINE SODIUM 25 MCG TABLET PO (06:47)
[2022-02-23] MEDS: SODIUM CHLORIDE 0.9% IV 1,000 ML 150 ML IV CONT (06:48)
[2022-02-23 07:39] LABS: Glucose Point of Care 72 mg/dl (65-105)
[2022-02-23] MEDS: VENLAFAXINE HCL XR 75 MG CAP.ER.24H PO (08:08)
[2022-02-23] MEDS: GABAPENTIN 300 MG CAPSULE 600 MG PO ×3 (08:08→16:57)
[2022-02-23] MEDS: ENOXAPARIN 40 MG/0.4 ML SYRINGE SUB-Q (08:08)
[2022-02-23] MEDS: FLUTICASONE PROPIONATE 0.05% NA SPR 16 GM BTL (*BKC) 2 SPRAY NASAL ×2 (08:09→16:56)
[2022-02-23] MEDS: LORATADINE 10 MG TABLET PO (08:09)
[2022-02-23] MEDS: FERROUS SULFATE 324 MG TABLET PO (08:09)
[2022-02-23] MEDS: MAGNESIUM OXIDE 400 MG TABLET PO (08:09)
[2022-02-23] MEDS: TAMSULOSIN HCL 0.4 MG CAPSULE PO (08:09)
[2022-02-23] MEDS: DOCUSATE SODIUM 100 MG CAPSULE PO (08:09)
--- NOTE | 2022-02-23 10:43 | PM.IMHP ---
H&P: HPI History of Present Illness Date/Time: 02/23/22 This is a 77-year-old male with a history of diabetes mellitus, hypothyroidism, CKD, CVA, status post FISHERIES OFFICER shunt, chronic Smith scatter, chronic pain, depression that was admitted to hospital de to Dizziness and hypotension. He was walking when he felt dizzy and slumped over Patient was found to be hypotensive and had a Urinary tract infection more than likely catheter induced as he has a Smith catheter. Patient cath according to patient and family is placed through fluoroscopy as it is hard to place. Patient denies to myself that he felt bad just tired and he take losartan, Tamsulosin and he take insulin although denies knowing what his blood sugars have been running. No nausea and or vomiting noted. Patient labs on admission has been WBCs initially was 9.5, hemoglobin 11.2, platelets 232, sodium was 131, BUN 21, creatinine 1.45, lactic is elevated at 2.5, lipase was 51, TSH is 5.76, urine is have 1+ WBCs positive nitrates 1+ bacteria. Patient started on IV Levaquin and is given 2 L of IV fluids with a continual rate of normal saline at 150. Patient has remained afebrile working with physical therapy states that he is feeling a lot better denies any pain or discomfort. Patient has occasional moments of confusion. Chief Complaint: Syncope, hypotension Review of Systems Review of Systems: Syncope, Orthostatic hypotension, UTI, Weakness All systems reviewed & are unremarkable except as noted in HPI and below PMFSH Past Medical History Medical History Anemia Chronic pain CKD (chronic kidney disease) stage 3, GFR 30-59 ml/min CVA (cerebrovascular accident) Depression Diabetes mellitus Hypertension Hypomagnesemia Hypothyroidism Pain in right hip Pain in right shoulder Urinary catheter complication Ventricular shunt in place Surgical History Surgical History H/O shoulder surgery History of appendectomy History of hip surgery BOTH Hx of cholecystectomy Family History Family History Father Malignant neoplasm of prostate father in a railway crossing accident in his early 40s Mother No problems noted. Other Unknown family medical history Social History Social History Smoking packs per day: 1 Smoking cigarettes per day: 20.0 Years smoked: 15 Smoking pack-years: 15.00 Smoking status: Former smoker Alcohol intake: unknown Substance use: unknown Substance use type: does not use Additional living arrangements comments: Gender identity (if verbalized by the patient): Male Spiritual care concerns: No Comments At time as signature, I have reviewed and agree with nursing past medical, social, surgical and family history. Please see nursing chart for further information. There is no relevant family history pertinent to the presenting complaint. Meds Home Medications and Allergies Home Medications Medication Instructions Recorded Confirmed Type bupropion HCl 75 mg PO DAILY 09/23/19 02/22/22 History cetirizine [Zyrtec] 10 mg PO DAILY 09/23/19 02/22/22 History cyclobenzaprine 10 mg PO TID 09/23/19 02/22/22 History fluticasone propionate 2 spray INTRANASAL BID 09/23/19 02/22/22 History gabapentin 600 mg PO TID 09/23/19 02/22/22 History levothyroxine [Synthroid] 25 mcg PO DAILY 09/23/19 02/22/22 History omeprazole 20 mg PO BID 09/23/19 02/22/22 History tamsulosin 0.4 mg PO DAILY 09/23/19 02/22/22 History venlafaxine 75 mg PO DAILY 09/23/19 02/22/22 History aspirin 81 mg tablet,delayed 81 mg PO DAILY 07/22/21 02/22/22 History release ferrous sulfate 325 mg (65 mg 325 mg PO DAILY #30 tablet 07/22/21 02/22/22 Rx iron) tablet insulin aspart U-100 100 unit/mL See Rx Instructions SUBCUT DAILY 07/22/21
[2022-02-23 11:45] LABS: Glucose Point of Care 198 mg/dl (65-105)
[2022-02-23 16:57] LABS: Glucose Point of Care 99 mg/dl (65-105)
[2022-02-23] MEDS: MELATONIN 5 MG TABLET PO (20:38)
[2022-02-23 21:02] LABS: Glucose Point of Care 95 mg/dl (65-105)
[2022-02-24] VITALS: BP 140/81; PULSE 90; RESP 18; TEMP 36.9; O2SAT 96
[2022-02-24 03:14] VITALS: BP 154/75; PULSE 82; PULSE 86; RESP 18; TEMP 36.6; O2SAT 98
[2022-02-24 05:10] LABS: Hematocrit 34.1 % (37.0-46.0); Hemoglobin 10.7 g/dL (12.4-15.3); Mean Corpuscular HGB Conc 31.4 g/dL (32.0-36.0); Mean Corpuscular Hemoglobin 25.4 pg (27.0-31.0); Mean Corpuscular Volume 80.8 fL (78.0-102.0); Mean Platelet Volume 10.4 fl (8.7-11.0); Platelet Count Result 188 K/mm3 (150-420); Red Blood Count 4.22 M/mm3 (4.70-6.10); Red Cell Distribution Width 17.1 % (11.6-14.4)
[2022-02-24 05:16] LABS: Anion Gap 8 mmol/L (8-16); Blood Urea Nitrogen 14 mg/dL (7-18); Calcium 8.5 mg/dL (8.5-10.1); Carbon Dioxide 28 mmol/L (21-32); Chloride 100 mmol/L (98-108); Estimated CRCL calculation 54 ml/min; Estimated Glomerular Filt Rate > 60; Glucose 98 mg/dL (70-99); Osmolality Calculated 282 mOsm/kg (285-295); Potassium 3.7 mmol/L (3.5-5.1); Sodium 136 mmol/L (136-145)
[2022-02-24] MEDS: LEVOTHYROXINE SODIUM 25 MCG TABLET PO (06:32)
[2022-02-24 08:00] VITALS: BP 128/73; PULSE 88; RESP 16; TEMP 36.4; O2SAT 96
[2022-02-24] MEDS: INSULIN GLARGINE (*BKC) 100 UNITS/ML 50 UNITS SUB-Q (08:31)
[2022-02-24] MEDS: ENOXAPARIN 40 MG/0.4 ML SYRINGE SUB-Q (08:32)
[2022-02-24] MEDS: FLUTICASONE PROPIONATE 0.05% NA SPR 16 GM BTL (*BKC) 2 SPRAY NASAL (08:32)
[2022-02-24] MEDS: GABAPENTIN 300 MG CAPSULE 600 MG PO (08:33)
[2022-02-24] MEDS: FERROUS SULFATE 324 MG TABLET PO (08:33)
[2022-02-24] MEDS: MAGNESIUM OXIDE 400 MG TABLET PO (08:33)
[2022-02-24] MEDS: TAMSULOSIN HCL 0.4 MG CAPSULE PO (08:33)
[2022-02-24] MEDS: LORATADINE 10 MG TABLET PO (08:33)
[2022-02-24] MEDS: VENLAFAXINE HCL XR 75 MG CAP.ER.24H PO (08:33)
[2022-02-24] MEDS: buPROPion HCL 75 MG TABLET PO (08:34)
--- NOTE | 2022-02-24 09:00 | PM.DS ---
DS: Admitting Diagnosis Discharge Date 02/24/2022 Admitting Diagnosis Urinary Tract infection, Hypotension,Syncope DS: Discharge Diagnosis Discharge Diagnosis (1) Syncope: Qualifiers: Syncope type: unspecified Qualified Code(s): R55 - Syncope and collapse Code(s): R55 - Syncope and collapse Status: Acute Assessment and Plan: Positive for Orthostatic hypotension IVF @ 150 until patient is eating and drinking adequately Outpatient echo Outpatient Carotid dopplers Phsyical therapy and occupation therapy to eval and treat Will treat infection IV levaquin Will monitor for s/s of Sepsis (2) Hypotension: Qualifiers: Hypotension type: unspecified hypotension type Qualified Code(s): I95.9 - Hypotension, unspecified Code(s): I95.9 - Hypotension, unspecified Status: Acute Assessment and Plan: Monitor vitals Monitor for dehydration Monitor for Electrolyte imbalance Blood pressure has remained within normal limits (3) CKD (chronic kidney disease) stage 3, GFR 30-59 ml/min: Code(s): N18.30 - Chronic kidney disease, stage 3 unspecified Status: Acute Assessment and Plan: BUN/CR 18/.13 monitor intake and output protocol (4) Anemia: Code(s): D64.9 - Anemia, unspecified Status: Acute Assessment and Plan: monitor labs Will transfuse if HgB should drop below 7 (5) Hypothyroidism: Code(s): E03.9 - Hypothyroidism, unspecified Status: Acute Assessment and Plan: continue home medication TSH 5.6 Synthroid changed to 12.5 lab drawn in 2 month TSH (6) Diabetes mellitus: Qualifiers: Diabetes mellitus complication status: without complication Diabetes mellitus senior living insulin use: with strand buncher fine wire use Diabetes mellitus type: type 2 Qualified Code(s): E11.9 - Type 2 diabetes mellitus without complications; Z79.4 - longterm (current) use of insulin Code(s): E11.9 - Type 2 diabetes mellitus without complications Status: Acute Assessment and Plan: Lantus changed from 78 units to 50 monitor Accu checks Monitor and give Insulin lispro 30 in am and 18 pm adjust insulin accordingly (7) Urinary catheter complication: Qualifiers: Encounter type: subsequent encounter Qualified Code(s): T83.9XXD - Unspecified complication of genitourinary prosthetic device, implant and graft, subsequent encounter Code(s): T83.9XXA - Unspecified complication of genitourinary prosthetic device, implant and graft, initial encounter Status: Acute Assessment and Plan: Smith in place IV levaquin daily monitor labs monitor intake and output (8) UTI (urinary tract infection): Code(s): N39.0 - Urinary tract infection, site not specified Status: Acute Assessment and Plan: Smith in place IV levaquin daily monitor labs monitor intake and output DS: Summary Hospital Course Reason for hospitalization: Syncope, Hypotension, Urinary Tract infection Hospital Course: This is a 77-year-old male that presented to the emergency room that had a syncopal episode and was found hypotensive in the emergency room. Patient was treated with IV fluids, IV Levaquin due to a urinary tract infection and blood pressure medicine was initially held. Patient has a past medical history of diabetes although blood sugar was 101 in the emergency room. Patient's blood pressure while here was stable last blood pressure was 128/73 he remained afebrile last temp was 97 5 pulse was 88 respirations were 16 and he was 96% on room air. Patient has a Smith catheter at home due to incontinence and urinary retention. Patient will return home with Smith catheter he will go home on oral antibiotics. Patient will continue his diabetes medication. Mr. Rowell denied any nausea vomiting diarrhea, remained afebrile, was eating and drinking ambulating sitting in the recliner chair prior to d
--- NOTE | 2022-02-24 10:35 | PC.NURSE ---
Discharge instructions reviewed with pt and daughter(Cathy). All questions answered. Pt assisted from wheelchair to private vehicle for discharge.
--- NOTE | 2022-02-26 10:06 | PC.NURSE ---
Discharge call back completed, no questions or concerns regarding discharge instructions, states care was excellent
[2022-03-08 15:13] LABS: Glucose Point of Care 101 mg/dl (65-105)
== END 2022-02-24 10:35 | disposition home or self-care (01) | DRG 699 ==
LOC: CHSED 15:18 → CHS2ND 15:31
PROVIDERS: Nurse Practitioner; Nurse Practitioner Family; Admitting Provider Internal Medicine; Emergency Provider Internal Medicine Critical Care Medicine; Visit Provider Internal Medicine
DX: T83.518A Infection and inflammatory reaction due to other urinary catheter, initial encounter (principal); N39.0 Urinary tract infection, site not specified; I95.9 Hypotension, unspecified; R55 Syncope and collapse; N18.30 Chronic kidney disease, stage 3 unspecified; I12.9 Hypertensive chronic kidney disease with stage 1 through stage 4 chronic kidney disease, or unspecified chronic kidney disease; E11.22 Type 2 diabetes mellitus with diabetic chronic kidney disease; E03.9 Hypothyroidism, unspecified; M25.551 Pain in right hip; R33.9 Retention of urine, unspecified; M25.511 Pain in right shoulder; G89.29 Other chronic pain; Z20.822 Contact with and (suspected) exposure to COVID-19; F32.A Depression, unspecified; Z98.2 Presence of cerebrospinal fluid drainage device; Z86.73 Personal history of transient ischemic attack (TIA), and cerebral infarction without residual deficits; Z79.4 Long term (current) use of insulin
CPT/HCPCS: 36415; 70450; 71045; 80048; 80053; 81001; 82948; 83605; 83690; 83735; 83880; 84443; 84484; 85025; 85027; 85610; 85730; 87040; 93005; 96360; 96361; 97110; 97161; 97165; 97530; 97535; 99285; A9270; C9803; J1650; J1815; J1956; J7030; J7040; J7120; U0003; U0005

== ENCOUNTER 2022-04-14 18:47 | Inpatient (IN) | payer MEDICARE, SELFPAY ==
[2022-04-14] VITALS (20 sets, daily range): BP systolic 132–169; BP diastolic 69–83; PULSE 87–102; RESP 16; TEMP 37; O2SAT 92–100; BMI 32.6
--- NOTE | ~2022-04-14 | XR_ITS ---
EXAMINATION: XR shoulder LT min 2V DATE: 04/15/2022 09:31 INDICATION: Left shoulder pain post fall TECHNIQUE: AP internally and externally rotated, AP oblique externally rotated and transscapular Y vi ews of the left shoulder were obtained. COMPARISON: 05/18/09 FINDINGS: Reverse left total shoulder arthroplasty in near-anatomic alignment. Cemented humeral component with cerclage wires about the proximal metaphyseal region of the humerus. No acute fracture. There is some osteolysis with grade 3 notching at the bone component interface at the inferior glenoid. There is a lso some osteolysis at the proximal margin of the humerus with uncovering of the cement surrounding t he humeral component proximal to the level of the first cerclage wire. No more distal periprosthetic lucency to suggest loosening. Small amount of heterotopic ossification in the soft tissues posterior to the glenohumeral joint. Moderate left acromioclavicular osteoarthritis. Partially visualized likel y ventriculoperitoneal shunt coursing over the medial right hemithorax. IMPRESSION: 1. Left reverse total shoulder arthroplasty in near-anatomic alignment with no acute osseous abnormal ity. 2. Osteolysis surrounding the proximal most aspect of the humeral component of the arthroplasty with additional focal osteolysis with grade 3 notching at the inferior glenoid. Reviewed, dictated and finalized at location B. IMPRESSION: 1. Left reverse total shoulder arthroplasty in near-anatomic alignment with no acute osseous abnormality. 2. Osteolysis surrounding the proximal most aspect of the humeral component of the arthroplasty with additional focal osteolysis with grade 3 notching at the inferior glenoid.
--- NOTE | ~2022-04-14 | XR_ITS ---
EXAMINATION: XR chest 1V portable INDICATION: Cough and congestion TECHNIQUE: Portable AP chest at 1911 hours COMPARISON: 02/22/2022 FINDINGS: The lungs are free of acute opacities. There is no pleural effusion or pneumothorax. The ca rdiomediastinal silhouette is normal. Changes of left total shoulder arthroplasty are noted. Ventricu loperitoneal shunt catheter tubing courses over the right hemithorax. IMPRESSION: 1. No acute cardiopulmonary abnormality. Reviewed, dictated and finalized at location F.
[2022-04-14 19:19] LABS: Basophils Absolute Auto 0.06 K/mm3 (0.00-0.10); Basophils Percent Auto 0.3 % (0.0-1.0); Eosinophils Absolute Auto 0.12 K/mm3 (0.02-0.50); Eosinophils Percent Auto 0.7 % (1.0-6.0); Hematocrit 33.1 % (37.0-46.0); Hemoglobin 10.3 g/dL (12.4-15.3); Immature Granulocyte Absolute 0.12 K/mm3 (0.00-0.00); Immature Granulocyte Percent A 0.7 % (0.0-0.0); Lymphocytes Absolute Auto 1.14 K/mm3 (1.10-4.50); Lymphocytes Percent Auto 6.5 % (18.0-42.0); Mean Corpuscular HGB Conc 31.1 g/dL (32.0-36.0); Mean Corpuscular Hemoglobin 24.1 pg (27.0-31.0); Mean Corpuscular Volume 77.3 fL (78.0-102.0); Mean Platelet Volume 10.5 fl (8.7-11.0); Monocytes Absolute Auto 1.86 K/mm3 (0.10-0.90); Monocytes Percent Auto 10.5 % (2.0-11.0); Neutrophils Absolute Auto 14.4 K/mm3 (1.7-7.2); Neutrophils Percent Auto 81.3 % (50.0-70.0); Platelet Count Result 227 K/mm3 (150-420); Red Blood Count 4.28 M/mm3 (4.70-6.10); Red Cell Distribution Width 16.5 % (11.6-14.4); White Blood Count 17.7 K/mm3 (4.8-10.8)
[2022-04-14 19:42] LABS: Alanine Aminotransferase 19 U/L (16-63); Albumin Level 3.3 g/dL (3.4-5.0); Alkaline Phosphatase 108 U/L (46-116); Anion Gap 7 mmol/L (8-16); Aspartate Amino Transferase 10 U/L (15-37); Bilirubin,Total 0.4 mg/dL (0.00-1.00); Blood Urea Nitrogen 16 mg/dL (7-18); Carbon Dioxide 25 mmol/L (21-32); Chloride 95 mmol/L (98-108); Estimated Glomerular Filt Rate 55; Glucose 228 mg/dL (70-99); NT Pro B Type Natriuretic Pept 89 pg/mL (0-450); Osmolality Calculated 272 mOsm/kg (285-295); Potassium 4.1 mmol/L (3.5-5.1); Sodium 127 mmol/L (136-145); Total Protein 7.7 g/dL (6.4-8.2)
[2022-04-14 20:12] LABS: SARS-CoV-2 Ag Negative (Negative)
--- NOTE | 2022-04-14 20:21 | ED.URI ---
HPI - URI/Sore Throat General Chief Complaint: Upper Respiratory Infection Stated Complaint: AMB Source: patient and EMS Mode of arrival: EMS Limitations: no limitations History of Present Illness HPI Narrative: this is a 77 year gentleman presents EMS with weakness cough congestion with shortness of breath his at home was concerned that she had pneumonia and passed along to her . Is a cough that is productive yellow sputum with generalized weakness with no chest pain no abdominal pain has been having chills with no fevers has a history of hypertension diabetes is on Lantus and history of hypertension depression and hypothyroidism. MD elicited complaint: cough and sore throat Onset (ago): day(s) Consistency: constant Severity: moderate Description of mucous: yellow Exacerbating factors: deep breaths Relieving factors: nothing Context: sick contacts Associated symptoms: chills, cough and shortness of breath Related Data Home Medications Medication Instructions Recorded Confirmed bupropion HCl 75 mg tablet 75 mg PO DAILY 09/23/19 04/14/22 cetirizine 10 mg disintegrating 10 mg PO DAILY 09/23/19 04/14/22 tablet (Zyrtec) cyclobenzaprine 10 mg tablet 10 mg PO TID 09/23/19 04/14/22 fluticasone propionate 50 2 spray intranasal BID 09/23/19 04/14/22 mcg/actuation nasal spray,suspension gabapentin 600 mg tablet 600 mg PO TID 09/23/19 04/14/22 omeprazole 20 mg capsule,delayed 20 mg PO BID 09/23/19 04/14/22 release tamsulosin 0.4 mg capsule 0.4 mg PO DAILY 09/23/19 04/14/22 venlafaxine 75 mg tablet,extended 75 mg PO DAILY 09/23/19 04/14/22 release 24 hr aspirin 81 mg tablet,delayed 81 mg PO DAILY 07/22/21 04/14/22 release insulin aspart U-100 100 unit/mL See Rx Instructions subcut DAILY 07/22/21 04/14/22 (3 mL) subcutaneous pen (Novolog Flexpen U-100 Insulin aspart) insulin glargine 100 unit/mL (3 78 unit subcut DAILY 07/22/21 04/14/22 mL) subcutaneous pen (Lantus Solostar U-100 Insulin) losartan 25 mg tablet 25 mg PO DAILY 07/22/21 04/14/22 mecobalamin (vitamin B12) 5,000 5,000 mcg PO DAILY 07/22/21 04/14/22 mcg disintegrating tablet melatonin 5 mg capsule 5 mg PO .nightly 07/22/21 04/14/22 metformin 1,000 mg tablet 1,000 mg PO BID 07/22/21 04/14/22 alogliptin 25 mg PO DAILY 01/24/22 04/14/22 Allergies Allergy/AdvReac Type Severity Reaction Status Date / Time oxycodone Allergy Intermediate heart Verified 04/14/22 19:15 racing Review of Systems Review of Systems: All systems reviewed & are unremarkable except as noted in HPI and below PMFSH Past Medical History Medical History Anemia Chronic pain CKD (chronic kidney disease) stage 3, GFR 30-59 ml/min CVA (cerebrovascular accident) Depression Diabetes mellitus Hypertension Hypomagnesemia Hypothyroidism Pain in right hip Pain in right shoulder Urinary catheter complication Ventricular shunt in place Surgical History Surgical History H/O shoulder surgery History of appendectomy History of hip surgery BOTH Hx of cholecystectomy Family History Family History Father Malignant neoplasm of prostate father in a railway crossing accident in his early 40s Mother No problems noted. Other Unknown family medical history Social History Social History Smoking packs per day: 1 Smoking cigarettes per day: 20.0 Years smoked: 15 Smoking pack-years: 15.00 Smoking status: Former smoker Alcohol intake: unknown Substance use: unknown Substance use type: does not use Additional living arrangements comments: Gender identity (if verbalized by the patient): Male Spiritual care concerns: No Exam Const: General: no acute distress Nutritional Appearance: well
[2022-04-14] MEDS: SODIUM CHLORIDE 0.9% IV 1,000 ML 999 ML IV CONT (20:42)
[2022-04-14 21:20] LABS: Appearance Urine Clear (Clear); Bilirubin Urine Negative (Negative); Color Urine Light Yellow (Yellow); Glucose Urine UA 3+ (Negative); Ketones Urine Negative (Negative); Leukocyte Esterase Ur Trace (Negative); Nitrate Urine Negative (Negative); Protein Urine Negative (Negative); Specific Grav Ur <= 1.005 (1.010-1.020); Urobilinogen Urine 0.2 mg/dL (0.2-1.0)
[2022-04-14 21:26] LABS: Add Urine Microscopic? YES; Blood Urine Trace-Intact (Negative)
[2022-04-14 21:27] LABS: Bacteria Urine 2+ /hpf; Squamous Epithelial Cell Urine None seen /hpf (Few); WBC Urine 0-3 /hpf (0-3)
--- NOTE | 2022-04-14 21:36 | ECG_ITS ---
Measurements Intervals [place] Rate: 101 P: 243 SD: 174 QRS: -71 QRSD: 162 T: 52 QT: 345 QTc: 449 Interpretive Statements SINUS TACHYCARDIA RIGHT BUNDLE BRANCH BLOCK [120+ ms QRS DURATION, UPRIGHT V1, 40+ ms S IN I/aVL/V4/V5/V6] LEFT ANTERIOR FASCICULAR BLOCK [QRS AXIS <= -45, QR IN I, RS IN II] MODERATE VOLTAGE CRITERIA FOR LVH, CONSIDER NORMAL VARIANT [MEETS CRITERIA IN ONE OF: R(aVL), S(V1), R(V5), R(V5/V6)+S(V1)] ABNORMAL ECG COMPARED TO ECG 02/22/2022 13:10:14 SINUS TACHYCARDIA NOW PRESENT Electronically Signed On 04-15-2022 16:50:22 CDT by Jesse Luis M.D.
--- NOTE | 2022-04-14 23:00 | ADMGEN ---
This patient, Mj Rowell, was admitted to 2nd Floor Room 205-2. Patient oriented to hospital policies and general routines including ID bracelet, bed and alarms, pain management, procedures, bathroom and other care routines, personal items, smoking policy, room service/diet, and visiting hours. Information on how to activate the Rapid Response Team has been discussed. Patient is encouraged to report perceived risks to care and to ask questions if he does not understand what he is told or what he should do.
[2022-04-14] MEDS: MELATONIN 5 MG TABLET PO (23:25)
[2022-04-14] MEDS: SODIUM CHLORIDE 0.9% IV 1,000 ML 100 ML IV CONT (23:31)
[2022-04-15] VITALS (8 sets, daily range): BP systolic 119–178; BP diastolic 53–77; PULSE 87–109; RESP 16–26; TEMP 37.1–37.3; O2SAT 92–100
[2022-04-15] MEDS: IPRATROPIUM 0.5 MG/ALBUTEROL SULFATE 2.5 MG AMPUL.NEB 3 ML INHALATION ×4 (00:26→18:22)
[2022-04-15 05:03] LABS: Hematocrit 32.3 % (37.0-46.0); Hemoglobin 10.1 g/dL (12.4-15.3); Mean Corpuscular HGB Conc 31.3 g/dL (32.0-36.0); Mean Corpuscular Hemoglobin 24.2 pg (27.0-31.0); Mean Corpuscular Volume 77.3 fL (78.0-102.0); Mean Platelet Volume 10.2 fl (8.7-11.0); Platelet Count Result 231 K/mm3 (150-420); Red Blood Count 4.18 M/mm3 (4.70-6.10); Red Cell Distribution Width 16.7 % (11.6-14.4); White Blood Count 15.6 K/mm3 (4.8-10.8)
[2022-04-15 05:25] LABS: Alanine Aminotransferase 18 U/L (16-63); Albumin Level 3.1 g/dL (3.4-5.0); Alkaline Phosphatase 93 U/L (46-116); Anion Gap 8 mmol/L (8-16); Aspartate Amino Transferase < 10 U/L (15-37); Bilirubin,Total 0.3 mg/dL (0.00-1.00); Blood Urea Nitrogen 14 mg/dL (7-18); Calcium 8.7 mg/dL (8.5-10.1); Carbon Dioxide 25 mmol/L (21-32); Chloride 97 mmol/L (98-108); Estimated CRCL calculation 59 ml/min; Estimated Glomerular Filt Rate > 60; Glucose 160 mg/dL (70-99); Magnesium 1.7 mg/dL (1.8-2.4); Osmolality Calculated 273 mOsm/kg (285-295); Potassium 3.7 mmol/L (3.5-5.1); Sodium 130 mmol/L (136-145); Total Protein 7.5 g/dL (6.4-8.2)
[2022-04-15] MEDS: LEVOTHYROXINE SODIUM 25 MCG TABLET 12.5 MCG PO (06:32)
[2022-04-15 07:36] LABS: Glucose Point of Care 167 mg/dl (65-105)
[2022-04-15] MEDS: buPROPion HCL 75 MG TABLET PO (08:38)
[2022-04-15] MEDS: LORATADINE 5 MG TABLET PO (08:38)
[2022-04-15] MEDS: FLUTICASONE PROPIONATE 0.05% NA SPR 16 GM BTL (*BKC) 2 SPRAY NASAL ×2 (08:39→16:46)
[2022-04-15] MEDS: ASPIRIN 81 MG ENTERIC TABLET PO (08:40)
[2022-04-15] MEDS: PANTOPRAZOLE SODIUM IV 40 MG VIAL IV PUSH (08:40)
[2022-04-15] MEDS: MAGNESIUM OXIDE 400 MG TABLET PO ×2 (08:40→10:08)
[2022-04-15] MEDS: metFORMIN HCL 500 MG TABLET 1000 MG PO ×2 (08:40→16:46)
[2022-04-15] MEDS: GABAPENTIN 300 MG CAPSULE 600 MG PO ×3 (08:41→16:46)
[2022-04-15] MEDS: guaiFENesin 12 HR 600 MG TABCR 1200 MG PO ×2 (08:41→21:19)
[2022-04-15] MEDS: VENLAFAXINE HCL XR 75 MG CAP.ER.24H PO (08:42)
[2022-04-15] MEDS: LOSARTAN POTASSIUM 25 MG TABLET PO (08:42)
[2022-04-15] MEDS: FERROUS SULFATE 324 MG TABLET PO (08:42)
[2022-04-15] MEDS: HYDROcodone/acetaminophen (*CRX) 5-325 MG TABLET 1 TAB PO (08:43)
[2022-04-15] MEDS: TAMSULOSIN HCL 0.4 MG CAPSULE PO (08:43)
[2022-04-15] MEDS: CYCLOBENZAPRINE HCL 10 MG TABLET PO ×3 (08:43→16:46)
[2022-04-15] MEDS: BENZONATATE 100 MG CAPSULE 200 MG PO ×3 (08:44→16:47)
[2022-04-15] MEDS: INSULIN GLARGINE (*BKC) 100 UNITS/ML 50 UNITS SUB-Q (08:46)
[2022-04-15] MEDS: INSULIN HUMAN REGULAR (*BKC) 100 UNITS/ML 20 UNITS SUB-Q (08:59)
[2022-04-15] MEDS: ENOXAPARIN 40 MG/0.4 ML SYRINGE SUB-Q (09:01)
--- NOTE | 2022-04-15 10:37 | PM.IMHP ---
H&P: HPI History of Present Illness Date/Time: 04/15/22 10:37 Chief Complaint: Congestion and cough Narrative: This is a 77-year-old gentleman who presented to urgent care with complaints of weakness, congestion, and productive cough with shortness of breath. Patient has a past medical history of, anemia, chronic pain, chronic kidney disease, CVA, depression, diabetes, hypertension, hyper magnesium, hypothyroidism, urinary catheter complications and ventricular shunt in place. Patient is a poor historian which is baseline for him most information obtained from his . According to his 2 weeks ago she was diagnosed with pneumonia she also noted that her developed a cough with greenish sputum became fatigued and she noted that he was confused yesterday she also noted that he fell multiple times. She was afraid that he might also have pneumonia patient is currently complaining of left shoulder pain. His also noted that he took Mucinex for 2 weeks with no results. Vital signs 178/77, pulse 109, 18, 99, 95% on room air, 17.7, hemoglobin 10.3, hematocrit 33.1, platelets 227, sodium 127, potassium 4.1, BUN 16, creatinine 1.26, lactic acid 2.0, liver function test within normal limit UA with blood leukocytes glucose and bacteria chest x-ray and x-ray of the left shoulder no acute findings. The patient denies CP, palpitation, extremity numbness, lightheadedness, dizziness, constipation, diarrhea, chills, or fever. He does continue to complain of a cough. Patient does have a chronic Smith in place and sees a urologist for this Review of Systems Review of Systems: All systems reviewed & are unremarkable except as noted in HPI and below PMFSH Past Medical History Medical History Anemia Chronic pain CKD (chronic kidney disease) stage 3, GFR 30-59 ml/min CVA (cerebrovascular accident) Depression Diabetes mellitus Hypertension Hypomagnesemia Hypothyroidism Pain in right hip Pain in right shoulder Urinary catheter complication Ventricular shunt in place Surgical History Surgical History H/O shoulder surgery History of appendectomy History of hip surgery BOTH Hx of cholecystectomy Family History Family History Father Malignant neoplasm of prostate father in a railway crossing accident in his early 40s Mother No problems noted. Other Unknown family medical history Social History Social History Smoking packs per day: 1 Smoking cigarettes per day: 20.0 Years smoked: 4 Smoking pack-years: 4.00 Smoking status: Former smoker Tobacco type: cigarettes Second hand tobacco smoke exposure: Yes Alcohol intake: former Substance use: never Substance use type: does not use Additional living arrangements comments: Gender identity (if verbalized by the patient): Male Spiritual care concerns: No Meds Home Medications and Allergies Home Medications Medication Instructions Recorded Confirmed Type bupropion HCl 75 mg tablet 75 mg PO DAILY 09/23/19 04/14/22 History cetirizine 10 mg disintegrating 10 mg PO DAILY 09/23/19 04/14/22 History tablet (Zyrtec) cyclobenzaprine 10 mg tablet 10 mg PO TID 09/23/19 04/14/22 History fluticasone propionate 50 2 spray intranasal BID 09/23/19 04/14/22 History mcg/actuation nasal spray,suspension gabapentin 600 mg tablet 600 mg PO TID 09/23/19 04/14/22 History omeprazole 20 mg capsule,delayed 20 mg PO BID 09/23/19 04/14/22 History release tamsulosin 0.4 mg capsule 0.4 mg PO DAILY 09/23/19 04/14/22 History venlafaxine 75 mg tablet,extended 75 mg PO DAILY 09/23/19 04/14/22 History release 24 hr aspirin 81 mg tablet,delayed 81 mg PO DAILY 07/22/21 04/14/22 History release ferrous sulfate 325 mg
[2022-04-15 11:41] LABS: Glucose Point of Care 221 mg/dl (65-105)
[2022-04-15 16:30] LABS: Glucose Point of Care 178 mg/dl (65-105)
[2022-04-15] MEDS: INSULIN HUMAN REGULAR (*BKC) 100 UNITS/ML 10 UNITS SUB-Q (16:50)
[2022-04-15 21:19] LABS: Glucose Point of Care 97 mg/dl (65-105)
[2022-04-15] MEDS: MELATONIN 5 MG TABLET PO (21:20)
[2022-04-16 00:08] VITALS: PULSE 88; RESP 19; O2SAT 97
[2022-04-16] MEDS: IPRATROPIUM 0.5 MG/ALBUTEROL SULFATE 2.5 MG AMPUL.NEB 3 ML INHALATION ×2 (00:08→06:20)
[2022-04-16 00:12] VITALS: PULSE 88; RESP 19; O2SAT 97
[2022-04-16 05:13] LABS: Hematocrit 31.8 % (37.0-46.0); Hemoglobin 9.7 g/dL (12.4-15.3); Mean Corpuscular HGB Conc 30.5 g/dL (32.0-36.0); Mean Corpuscular Hemoglobin 23.9 pg (27.0-31.0); Mean Corpuscular Volume 78.3 fL (78.0-102.0); Mean Platelet Volume 10.4 fl (8.7-11.0); Platelet Count Result 228 K/mm3 (150-420); Red Blood Count 4.06 M/mm3 (4.70-6.10); Red Cell Distribution Width 16.8 % (11.6-14.4)
[2022-04-16 05:29] LABS: Alanine Aminotransferase 16 U/L (16-63); Albumin Level 2.9 g/dL (3.4-5.0); Alkaline Phosphatase 87 U/L (46-116); Anion Gap 7 mmol/L (8-16); Aspartate Amino Transferase 10 U/L (15-37); Bilirubin,Total 0.3 mg/dL (0.00-1.00); Blood Urea Nitrogen 17 mg/dL (7-18); Calcium 8.7 mg/dL (8.5-10.1); Carbon Dioxide 26 mmol/L (21-32); Chloride 99 mmol/L (98-108); Estimated CRCL calculation 57 ml/min; Estimated Glomerular Filt Rate > 60; Glucose 81 mg/dL (70-99); Magnesium 1.9 mg/dL (1.8-2.4); Osmolality Calculated 274 mOsm/kg (285-295); Potassium 3.5 mmol/L (3.5-5.1); Sodium 132 mmol/L (136-145); Total Protein 7.8 g/dL (6.4-8.2)
[2022-04-16 06:23] VITALS: PULSE 89; RESP 18; O2SAT 94
[2022-04-16 06:34] VITALS: PULSE 91; RESP 18; O2SAT 100
[2022-04-16] MEDS: LEVOTHYROXINE SODIUM 12.5 MCG TABLET PO (06:38)
[2022-04-16 07:53] LABS: Glucose Point of Care 94 mg/dl (65-105)
[2022-04-16 08:00] VITALS: BP 149/72; PULSE 86; RESP 16; TEMP 36.8; O2SAT 95
--- NOTE | 2022-04-16 08:41 | P.DS_ITS ---
DS: Admitting Diagnosis Discharge Date 04/16/2022 Admitting Diagnosis UTI, URI DS: Discharge Diagnosis Discharge Diagnosis (1) Upper respiratory infection: Qualifiers: URI type: unspecified URI Qualified Code(s): J06.9 - Acute upper respiratory infection, unspecified Code(s): J06.9 - Acute upper respiratory infection, unspecified Status: Acute Assessment and Plan: * Continue Rocephin with guaifenesin Tessalon Perles, albuterol and supplementary oxygen as needed (2) Acute hyponatremia: Code(s): E87.1 - Hypo-osmolality and hyponatremia Status: Acute Assessment and Plan: * Sodium 127>130>132 * (3) UTI (urinary tract infection): Code(s): N39.0 - Urinary tract infection, site not specified Status: Acute Assessment and Plan: * Possibly secondary to chronic Smith catheter * UA with glucose, blood, leukocyte esterase and bacteria * Patient will discharge home with Bactrim * UA culture pending * Lactic acid within normal limits (4) Urinary catheter complication: Qualifiers: Encounter type: subsequent encounter Qualified Code(s): T83.9XXD - Unspecified complication of genitourinary prosthetic device, implant and graft, subsequent encounter Code(s): T83.9XXA - Unspecified complication of genitourinary prosthetic device, implant and graft, initial encounter Status: Acute (5) CKD (chronic kidney disease) stage 3, GFR 30-59 ml/min: Code(s): N18.30 - Chronic kidney disease, stage 3 unspecified Status: Acute Assessment and Plan: * Stable * BUN 14>17, creatinine 1.01>1.05 * Follow-up with primary care physician (6) Anemia: Code(s): D64.9 - Anemia, unspecified Status: Acute Assessment and Plan: * H&H 10.1/32.2 >9.7/31.8 patient is at baseline * No obvious bleeding noted (7) Hypomagnesemia: Code(s): E83.42 - Hypomagnesemia Status: Acute Assessment and Plan: * Magnesium 1.7 * Continue supplements (8) Chronic pain: Code(s): G89.29 - Other chronic pain Status: Acute Assessment and Plan: * Controlled * Continue Tylenol, tramadol and [place] * Will adjust as needed (9) Pain in right shoulder: Code(s): M25.511 - Pain in right shoulder Status: Acute Assessment and Plan: * Imaging does not indicate a fracture dislocation (10) Depression: Code(s): F32.9 - Major depressive disorder, single episode, unspecified Status: Acute Assessment and Plan: * Continue home medication (11) Hypothyroidism: Code(s): E03.9 - Hypothyroidism, unspecified Status: Acute Assessment and Plan: * Continue Synthroid (12) Diabetes mellitus: Qualifiers: Diabetes mellitus complication status: without complication 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 insulin use: with snf use Diabetes mellitus type: type 2 Qualified Code(s): E11.9 - Type 2 diabetes mellitus without complications; 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
--- NOTE | 2022-04-16 08:41 | PM.DS ---
DS: Admitting Diagnosis Discharge Date 04/16/2022 Admitting Diagnosis UTI, URI DS: Discharge Diagnosis Discharge Diagnosis (1) Upper respiratory infection: Qualifiers: URI type: unspecified URI Qualified Code(s): J06.9 - Acute upper respiratory infection, unspecified Code(s): J06.9 - Acute upper respiratory infection, unspecified Status: Acute Assessment and Plan: Continue Rocephin with guaifenesin Tessalon Perles, albuterol and supplementary oxygen as needed (2) Acute hyponatremia: Code(s): E87.1 - Hypo-osmolality and hyponatremia Status: Acute Assessment and Plan: Sodium 127>130>132 (3) UTI (urinary tract infection): Code(s): N39.0 - Urinary tract infection, site not specified Status: Acute Assessment and Plan: Possibly secondary to chronic Smith catheter UA with glucose, blood, leukocyte esterase and bacteria Patient will discharge home with Bactrim UA culture pending Lactic acid within normal limits (4) Urinary catheter complication: Qualifiers: Encounter type: subsequent encounter Qualified Code(s): T83.9XXD - Unspecified complication of genitourinary prosthetic device, implant and graft, subsequent encounter Code(s): T83.9XXA - Unspecified complication of genitourinary prosthetic device, implant and graft, initial encounter Status: Acute (5) CKD (chronic kidney disease) stage 3, GFR 30-59 ml/min: Code(s): N18.30 - Chronic kidney disease, stage 3 unspecified Status: Acute Assessment and Plan: Stable BUN 14>17, creatinine 1.01>1.05 Follow-up with primary care physician (6) Anemia: Code(s): D64.9 - Anemia, unspecified Status: Acute Assessment and Plan: H&H 10.1/32.2 >9.7/31.8 patient is at baseline No obvious bleeding noted (7) Hypomagnesemia: Code(s): E83.42 - Hypomagnesemia Status: Acute Assessment and Plan: Magnesium 1.7 Continue supplements (8) Chronic pain: Code(s): G89.29 - Other chronic pain Status: Acute Assessment and Plan: Controlled Continue Tylenol, tramadol and Hendrum Will adjust as needed (9) Pain in right shoulder: Code(s): M25.511 - Pain in right shoulder Status: Acute Assessment and Plan: Imaging does not indicate a fracture dislocation (10) Depression: Code(s): F32.9 - Major depressive disorder, single episode, unspecified Status: Acute Assessment and Plan: Continue home medication (11) Hypothyroidism: Code(s): E03.9 - Hypothyroidism, unspecified Status: Acute Assessment and Plan: Continue Synthroid (12) Diabetes mellitus: Qualifiers: Diabetes mellitus complication status: without complication Diabetes mellitus machine long goods helper insulin use: with machine long goods helper use Diabetes mellitus type: type 2 Qualified Code(s): E11.9 - Type 2 diabetes mellitus without complications; 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 Patient is a poor historian which is baseline for him most information obtained from his .? According to his 2 weeks ago she was diagnosed with pneum
[2022-04-16] MEDS: BENZONATATE 100 MG CAPSULE 200 MG PO (08:50)
[2022-04-16] MEDS: metFORMIN HCL 500 MG TABLET 1000 MG PO (08:50)
[2022-04-16] MEDS: LOSARTAN POTASSIUM 25 MG TABLET PO (08:52)
[2022-04-16] MEDS: guaiFENesin 12 HR 600 MG TABCR 1200 MG PO (08:52)
[2022-04-16] MEDS: PANTOPRAZOLE SODIUM IV 40 MG VIAL IV PUSH (08:52)
[2022-04-16] MEDS: LORATADINE 5 MG TABLET PO (08:52)
[2022-04-16] MEDS: ASPIRIN 81 MG ENTERIC TABLET PO (08:54)
[2022-04-16] MEDS: CYCLOBENZAPRINE HCL 10 MG TABLET PO (08:54)
[2022-04-16] MEDS: buPROPion HCL 75 MG TABLET PO (08:54)
[2022-04-16] MEDS: MAGNESIUM OXIDE 400 MG TABLET PO ×2 (08:54→09:15)
[2022-04-16] MEDS: FERROUS SULFATE 324 MG TABLET PO (08:56)
[2022-04-16] MEDS: VENLAFAXINE HCL XR 75 MG CAP.ER.24H PO (08:56)
[2022-04-16] MEDS: ENOXAPARIN 40 MG/0.4 ML SYRINGE SUB-Q (08:56)
[2022-04-16] MEDS: GABAPENTIN 300 MG CAPSULE 600 MG PO (08:56)
[2022-04-16] MEDS: FLUTICASONE PROPIONATE 0.05% NA SPR 16 GM BTL (*BKC) 2 SPRAY NASAL (09:10)
[2022-04-16] MEDS: TAMSULOSIN HCL 0.4 MG CAPSULE PO (09:10)
[2022-04-16] MEDS: INSULIN GLARGINE (*BKC) 100 UNITS/ML 50 UNITS SUB-Q (09:25)
[2022-04-16] MEDS: INSULIN HUMAN REGULAR (*BKC) 100 UNITS/ML 20 UNITS SUB-Q (09:28)
--- NOTE | 2022-04-16 11:51 | PC.NURSE ---
Pt discharged to home with vss. Pt denies pain or discomfort. Medications reviewed with pt. RN took pt to family car and assisted him into the car.
--- NOTE | 2022-04-19 10:20 | PC.NURSE ---
Spouse states they received and understood the discharge instructions. She also states her was very pleased with his care .
== END 2022-04-16 11:00 | disposition home health service (06) | DRG 153 ==
LOC: CHSED 20:45 → CHS2ND 22:42
PROVIDERS: Nurse Practitioner; Admitting Provider Internal Medicine; Emergency Provider Emergency Medicine; Visit Provider Internal Medicine
DX: J06.9 Acute upper respiratory infection, unspecified (principal); T83.511A Infection and inflammatory reaction due to indwelling urethral catheter, initial encounter; N39.0 Urinary tract infection, site not specified; E87.1 Hypo-osmolality and hyponatremia; I12.9 Hypertensive chronic kidney disease with stage 1 through stage 4 chronic kidney disease, or unspecified chronic kidney disease; N18.30 Chronic kidney disease, stage 3 unspecified; D64.9 Anemia, unspecified; E83.42 Hypomagnesemia; E11.22 Type 2 diabetes mellitus with diabetic chronic kidney disease; Z20.822 Contact with and (suspected) exposure to COVID-19; E03.9 Hypothyroidism, unspecified; M25.511 Pain in right shoulder; G89.29 Other chronic pain; F32.A Depression, unspecified; Z86.73 Personal history of transient ischemic attack (TIA), and cerebral infarction without residual deficits; Z87.891 Personal history of nicotine dependence; Z98.2 Presence of cerebrospinal fluid drainage device
CPT/HCPCS: 36415; 71045; 73030; 80053; 81001; 82948; 83605; 83735; 83880; 85025; 85027; 87040; 87077; 87086; 87088; 87186; 87426; 93005; 94640; 96361; 96365; 97161; 97165; 99285; A9270; C9113; C9803; J0696; J1650; J1815; J7030

== ENCOUNTER 2024-03-29 18:55 | Emergency (ER) | payer OTHER, SELFPAY ==
[2024-03-29] VITALS (9 sets, daily range): BP systolic 116–155; BP diastolic 77–121; PULSE 79–89; RESP 14–19; TEMP 36.5; O2SAT 92–99
--- NOTE | 2024-03-29 19:09 | ED.GENADULT ---
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 The patient denies any weakness, nausea /vomiting, headache or change in mental status. The patient drinks large amounts of fluids. -- Patient had recent leg swelling for which he was prescribed diuretics. The patient denies any fever or chills. No chest pain or shortness of breath no nausea/ vomiting /abdominal pain / diarrhea. the patient does not have any specific complaints. Associated symptoms: cough Related Data Home Medications Medication Instructions Recorded Confirmed bupropion HCl 75 mg tablet 75 mg PO DAILY 09/23/19 03/29/24 cetirizine 10 mg disintegrating 10 mg PO DAILY 09/23/19 03/29/24 tablet (Zyrtec) cyclobenzaprine 10 mg tablet 10 mg PO TID 09/23/19 03/29/24 fluticasone propionate 50 2 spray intranasal BID 09/23/19 03/29/24 mcg/actuation nasal spray,suspension gabapentin 600 mg tablet 600 mg PO TID 09/23/19 03/29/24 omeprazole 20 mg capsule,delayed 20 mg PO BID 09/23/19 03/29/24 release tamsulosin 0.4 mg capsule 0.4 mg PO DAILY 09/23/19 03/29/24 venlafaxine 75 mg tablet,extended 75 mg PO DAILY 09/23/19 03/29/24 release 24 hr aspirin 81 mg tablet,delayed 81 mg PO DAILY 07/22/21 03/29/24 release insulin aspart U-100 100 unit/mL See Rx Instructions subcut DAILY 07/22/21 03/29/24 (3 mL) subcutaneous pen (Novolog FlexPen U-100 Insulin aspart) insulin glargine 100 unit/mL (3 78 unit subcut DAILY 07/22/21 03/29/24 mL) subcutaneous pen (Lantus Solostar U-100 Insulin) losartan 25 mg tablet 25 mg PO DAILY 07/22/21 03/29/24 mecobalamin (vitamin B12) 5,000 5,000 mcg PO DAILY 07/22/21 03/29/24 mcg disintegrating tablet melatonin 5 mg capsule 5 mg PO .nightly 07/22/21 03/29/24 metformin 1,000 mg tablet 1,000 mg PO BID 07/22/21 03/29/24 alogliptin 25 mg PO DAILY 01/24/22 03/29/24 Allergies Allergy/AdvReac Type Severity Reaction Status Date / Time oxycodone Allergy Intermediate heart Verified 04/14/22 19:15 racing Review of Systems Review of Systems: All systems reviewed & are unremarkable except as noted in HPI and below Constitutional: Constitutional: Reports as per HPI and Reports no additional constitutional complaints Eyes: Eyes: Reports as per HPI and Reports no additional eye complaints ENT: Reports system reviewed and no additional complaints, except as documented and Reports as per HPI Cardiovascular: Cardiovascular: Reports as per HPI and Reports no additional cardiovascular complaints Respiratory: Respiratory: Reports as per HPI, Reports no additional respiratory complaints and Reports cough Gastrointestinal: Gastrointestinal: Reports as per HPI and Reports no additional gastrointestinal complaints Genitourinary: Genitourinary: Reports no additional male genitourinary complaints and Reports as per HPI Comments: Suprapubic catheter in place Musculoskeletal: Musculoskeletal: Reports no additional musculoskeletal complaints and Reports as per HPI Integumentary/Breasts: Skin/Breast: Reports system reviewed and no additional complaints, except as docu and Reports as per HPI Neurologic: Reports system reviewed and no additional complaints, except as documented and Reports as per HPI Psychiatric: Psychiatric: Reports no additional psychiatric complaints and Reports as per HPI Endocrine: Endocrine: Reports no additional endocrine complaints and Reports as per HPI Hematologi
--- NOTE | 2024-03-29 19:13 | ECG_ITS ---
SEE SCANNED COPY FOR CONFIRMED REPORT MTDD
--- NOTE | 2024-03-29 19:46 | PC.NURSE ---
ekg being completed at this time
[2024-03-29 19:58] LABS: Basophils Absolute Auto 0.07 K/mm3 (0.00-0.10); Basophils Percent Auto 0.7 % (0.0-1.0); Eosinophils Absolute Auto 0.28 K/mm3 (0.02-0.50); Eosinophils Percent Auto 2.8 % (1.0-6.0); Lymphocytes Absolute Auto 1.73 K/mm3 (1.10-4.50); Lymphocytes Percent Auto 17.5 % (18.0-42.0); Mean Corpuscular HGB Conc 33.3 g/dL (32-36); Mean Corpuscular Hemoglobin 29.8 pg (27.0-31.0); Mean Corpuscular Volume 89.5 fL (78.0-102.0); Monocytes Absolute Auto 1.28 K/mm3 (0.10-0.90); Neutrophils Absolute Auto 6.41 K/mm3 (1.70-7.20); Platelet Count Result 203 K/mm3 (150-420); Red Blood Count 5.03 M/mm3 (4.70-6.10); Red Cell Distribution Width 12.5 % (11.6-14.4); White Blood Count 9.9 K/mm3 (4.8-10.8)
--- NOTE | 2024-03-29 19:59 | PC.NURSE ---
lab work in progress. offered patient a blanket. does not want one at this time. call light is in reach. went to the restroom
[2024-03-29 20:22] LABS: Alanine Aminotransferase 33 U/L (16-63); Albumin Level 3.5 g/dL (3.4-5.0); Alkaline Phosphatase 110 U/L (46-116); Anion Gap 6 mmol/L (4-12); Aspartate Amino Transferase 16 U/L (15-37); Bilirubin,Total 0.3 mg/dL (0.00-1.00); Blood Urea Nitrogen 18 mg/dL (7-18); Calcium 9.1 mg/dL (8.5-10.1); Carbon Dioxide 31 mmol/L (21-32); Chloride 90 mmol/L (98-108); Estimated CRCL calculation 47 ml/min; Estimated Glomerular Filt Rate 56; Glucose 200 mg/dL (70-99); NT Pro B Type Natriuretic Pept 135 pg/mL (0-450); Osmolality Calculated 271 mOsm/kg (285-295); Sodium 127 mmol/L (136-145); Thyroid Stimulating Hormone 2.92 uIU/mL (0.36-3.74); Total Protein 7.1 g/dL (6.4-8.2); Troponin I 10.6 ng/L (0.00-60.4)
== END 2024-03-29 21:15 | disposition home or self-care (01) ==
PROVIDERS: Emergency Provider Internal Medicine Critical Care Medicine; PCP Pathology Hematology
DX: E87.1 Hypo-osmolality and hyponatremia (principal); I12.9 Hypertensive chronic kidney disease with stage 1 through stage 4 chronic kidney disease, or unspecified chronic kidney disease; E11.22 Type 2 diabetes mellitus with diabetic chronic kidney disease; N18.30 Chronic kidney disease, stage 3 unspecified; E03.9 Hypothyroidism, unspecified; D64.9 Anemia, unspecified; F32.A Depression, unspecified; Z98.2 Presence of cerebrospinal fluid drainage device; Z86.73 Personal history of transient ischemic attack (TIA), and cerebral infarction without residual deficits; Z87.891 Personal history of nicotine dependence; Z79.82 Long term (current) use of aspirin; Z79.4 Long term (current) use of insulin; Z79.84 Long term (current) use of oral hypoglycemic drugs; Z79.51 Long term (current) use of inhaled steroids
CPT/HCPCS: 36415; 80053; 83880; 84443; 84484; 85025; 93005; 99284